=== PATIENT | female | born 1950 | race Caucasian/White ===

== ENCOUNTER → 2020-02-13 11:33 | Outpatient (CLI) | payer MEDICARE, SELFPAY ==
--- NOTE | ~2020-02-13 | MM_ITS ---
EXAMINATION: screening [facility] BI w julia HISTORY: Screening mammogram TECHNIQUE: Craniocaudal and mediolateral oblique 3-D tomosynthesis images were obtained and synthetic 2-D images were generated. CAD analysis was submitted and interpreted. COMPARISON: 09/30/2018, 09/06/2017, 05/29/2016 BREAST PARENCHYMAL COMPOSITION: There are scattered areas of fibroglandular density. FINDINGS: Stable focal asymmetries are present in the upper outer quadrant of the right breast. There is no evidence of suspicious mass, calcification, or architectural distortion to suggest malignancy in either breast. There has been no suspicious interval change. IMPRESSION: 1. No mammographic evidence of malignancy. 2. Recommend routine screening mammography in one year. BI-RADS Category 2: Benign finding(s). Reviewed, dictated and finalized at location A.
== END ==
PROVIDERS: PCP Internal Medicine; Visit Provider Obstetrics & Gynecology
DX: Z12.31 Encounter for screening mammogram for malignant neoplasm of breast (principal)
CPT/HCPCS: 77063; 77067

== ENCOUNTER → 2021-02-05 13:11 | Outpatient (CLI) | payer MEDICARE, SELFPAY ==
--- NOTE | ~2021-02-05 | DEXA_ITS ---
Bone Density Report Name: Joselyn Hughes Age: 70 Sex: Female Ethnicity: White Date of : 1950 Indication: osteopenia; hysterectomy; postmenopausal Referring Provider: Jovan Monae Study: Bone densitometry was performed. Exam Date: February 05, 2021 Accession number: [id number] Bone Density: Region BMD T-score Z-score Classification AP Spine (L1-L4) 0.942 -1.0 1.0 Normal Femoral Neck (Left) 0.578 -2.4 -0.7 Osteopenia Total Hip (Left) 0.768 -1.4 0.0 Osteopenia Femoral Neck (Right) 0.669 -1.6 0.1 Osteopenia Total Hip (Right) 0.735 -1.7 -0.3 Osteopenia Total Hip Mean 0.752 -1.6 -0.2 Osteopenia World Health Organization criteria for BMD impression classify patients as: Normal (T-score at or above -1.0), Osteopenia (T-score between -1.0 and -2.5), or Osteoporosis (T-score at or below -2.5). 10-year Fracture Risk(1): Major Osteoporotic Fracture 12% Hip Fracture 2.5% Reported Risk Factors: [place] (), Neck BMD=0.578, BMI=35.5 (1) FRAX(R) Version 3.08. Fracture probability calculated for an untreated patient. Fracture probability may be lower if the patient has received treatment. Previous Exams: Region Exam Age BMD T-score BMD Change BMD Change Date g/cm2 vs Baseline vs Previous AP Spine(L1-L4) 02/05/2021 70 0.942 -1.0 0.010 -0.013 03/14/2012 61 0.955 -0.8 0.023 0.043* 02/17/2010 59 0.912 -1.2 -0.020 -0.020 02/15/2008 57 0.932 -1.0 Total Hip(Left) 02/05/2021 70 0.768 -1.4 -0.135* -0.023 03/14/2012 61 0.791 -1.2 -0.113 -0.015 02/17/2010 59 0.806 -1.1 -0.097 -0.097 02/15/2008 57 0.903 -0.3 Total Hip(Right) 02/05/2021 70 0.735 -1.7 -0.109* 0.038 03/14/2012 61 0.697 -2.0 -0.147 -0.042* 02/17/2010 59 0.738 -1.7 -0.105 -0.105 02/15/2008 57 0.844 -0.8 *Denotes significance at 95% confidence level, LSC for AP Spine = 0.022 g/cm2, LSC for Total Hip = 0.027 g/cm2 Clinical Information Provided by Patient: Has the following medical conditions: Hysterectomy Patient maximum height was 62.0 Menopause Age: 54 Drinks caffeinated beverages Onset of menses at age 14 Number of children 1 Impression: The patient has low bone mass, based on the Left Femoral Neck T-score. The patient has an estimated ten-year risk of hip
== END ==
PROVIDERS: PCP Internal Medicine; Visit Provider Internal Medicine
DX: Z13.820 Encounter for screening for osteoporosis (principal); Z78.0 Asymptomatic menopausal state; M85.852 Other specified disorders of bone density and structure, left thigh; M85.851 Other specified disorders of bone density and structure, right thigh
CPT/HCPCS: 77080

== ENCOUNTER → 2021-03-28 12:19 | Outpatient (CLI) | payer MEDICARE, SELFPAY ==
--- NOTE | ~2021-03-28 | MM_ITS ---
EXAMINATION: MM screening g[facility] BI w julia HISTORY: Screening TECHNIQUE: Craniocaudal and mediolateral oblique 3-D tomosynthesis images were obtained and synthetic 2-D images were generated. CAD analysis was submitted and interpreted. COMPARISON: Comparison to multiple prior studies sequentially, with oldest reviewed study dated 03/19. BREAST PARENCHYMAL COMPOSITION: There are scattered areas of fibroglandular density. FINDINGS: There is no evidence of suspicious mass, calcification, or architectural distortion to sugg est malignancy in either breast. There has been no suspicious interval change. IMPRESSION: 1. No mammographic evidence of malignancy. 2. Recommend routine screening mammography in one year. BI-RADS Category 1: Negative Reviewed, dictated and finalized at location A. 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
== END ==
PROVIDERS: Visit Provider Obstetrics & Gynecology
DX: Z12.31 Encounter for screening mammogram for malignant neoplasm of breast (principal)
CPT/HCPCS: 77063; 77067

== ENCOUNTER 2021-11-12 11:04 | Outpatient (CLI) | payer MEDICARE, SELFPAY ==
--- NOTE | ~2021-11-12 | XR_ITS ---
XR hand RT min 3V DATE: 11/12/2021 11:41 INDICATION: Tenderness and swelling at first carpometacarpal joint TECHNIQUE: 3 views COMPARISON: None FINDINGS: There is osteopenia. There is joint space narrowing and mild spurring at the first carpometacarpal joint consistent with o steoarthritis. There is mild osteoarthritic change at the first through fourth metacarpophalangeal joints and multip le interphalangeal joints. No fracture, dislocation, periosteal reaction or bone destruction. IMPRESSION: Polyarticular osteoarthritis Osteopenia Reviewed, dictated and finalized at location A.
== END 2021-11-12 11:05 | disposition home or self-care (01) ==
LOC: CHSIMG 11:07
PROVIDERS: PCP Internal Medicine; Visit Provider Internal Medicine
DX: M79.644 Pain in right finger(s) (principal); M79.641 Pain in right hand
CPT/HCPCS: 73130

== ENCOUNTER → 2022-05-08 10:39 | Outpatient (CLI) | payer MEDICARE, SELFPAY ==
--- NOTE | ~2022-05-08 | MM_ITS ---
EXAMINATION: MM screening gillian BI w julia HISTORY: Screening mammogram TECHNIQUE: Craniocaudal and mediolateral oblique 3-D tomosynthesis images were obtained and synthetic 2-D images were generated. CAD analysis was submitted and interpreted. COMPARISON: 03/28/2021, 02/13/2020, 09/30/2018 bilateral screening mammogram examinations BREAST PARENCHYMAL COMPOSITION: There are scattered areas of fibroglandular density. FINDINGS: Stable mild fibroglandular asymmetry. There is no evidence of suspicious mass, calcificatio n, or architectural distortion to suggest malignancy in either breast. There has been no suspicious i nterval change. IMPRESSION: 1. No mammographic evidence of malignancy. 2. Recommend routine screening mammography in one year. BI-RADS Category 1: Negative Reviewed, dictated and finalized at location B. 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
== END ==
PROVIDERS: PCP Internal Medicine; Visit Provider Obstetrics & Gynecology
DX: Z12.31 Encounter for screening mammogram for malignant neoplasm of breast (principal)
CPT/HCPCS: 77063; 77067

== ENCOUNTER 2023-01-11 14:11 | Outpatient (CLI) | payer MEDICARE, SELFPAY ==
--- NOTE | ~2023-01-11 | XR_ITS ---
EXAMINATION: XR chest 2V 01/11/2023 14:34 INDICATION: Chest pain PROCEDURE: 2 view chest COMPARISON: 06/11/2015 FINDINGS: The lungs are clear. The cardiomediastinal silhouette is within normal limits. There are no pleural effusions. There is no pneumothorax suspected. There is dextroscoliosis. Moderate thorac ic spondylosis. IMPRESSION: 1: NO ACUTE CARDIOPULMONARY DISEASE. Reviewed, dictated and finalized at location B.
[2023-01-11 14:28] LABS: Basophils Absolute Auto 0.03 K/mm3 (0.00-0.10); Basophils Percent Auto 0.4 % (0.0-1.0); Eosinophils Absolute Auto 0.18 K/mm3 (0.02-0.50); Eosinophils Percent Auto 2.2 % (1.0-6.0); Hematocrit 40.9 % (35.0-42.0); Hemoglobin 13.6 g/dL (11.7-13.8); Immature Granulocyte Absolute 0.02 K/mm3 (0.00-0.00); Immature Granulocyte Percent A 0.2 % (0.0-0.0); Lymphocytes Absolute Auto 2.79 K/mm3 (1.10-4.50); Lymphocytes Percent Auto 34.8 % (18.0-42.0); Mean Corpuscular HGB Conc 33.3 g/dL (32.0-36.0); Mean Corpuscular Hemoglobin 32.3 pg (27.0-31.0); Mean Corpuscular Volume 97.1 fL (78.0-102.0); Mean Platelet Volume 10.2 fl (9.2-11.8); Monocytes Absolute Auto 0.54 K/mm3 (0.10-0.90); Monocytes Percent Auto 6.7 % (2.0-11.0); Neutrophils Absolute Auto 4.5 K/mm3 (1.7-7.2); Neutrophils Percent Auto 55.7 % (50.0-70.0); Platelet Count Result 221 K/mm3 (150-420); Red Blood Count 4.21 M/mm3 (4.20-5.40); Red Cell Distribution Width 11.6 % (11.6-14.4)
--- NOTE | 2023-01-11 14:38 | ECG_ITS ---
Measurements Intervals [place] Rate: 81 P: 56 [place]: 219 QRS: 44 QRSD: 84 T: 51 QT: 370 QTc: 432 Interpretive Statements SINUS RHYTHM WITH FIRST DEGREE AV BLOCK VENTRICULAR PREMATURE COMPLEX BORDERLINE ST ABNORMALITY- ANTERAOLAT/INF LEADS BORDERLINE ECG NO PREVIOUS ECG AVAILABLE FOR COMPARISON Electronically Signed On 01-11-2023 14:58:36 CDT by Ry Bernstein D.O.
[2023-01-11 14:41] LABS: D Dimer 0.45 mg/L (0.19-0.50)
[2023-01-11 14:45] LABS: Alanine Aminotransferase 20 U/L (14-59); Albumin Level 3.8 g/dL (3.4-5.0); Alkaline Phosphatase 80 U/L (46-116); Anion Gap 10 mmol/L (8-16); Aspartate Amino Transferase 13 U/L (15-37); Bilirubin,Total 0.5 mg/dL (0.00-1.00); Blood Urea Nitrogen 15 mg/dL (7-18); Calcium 9.8 mg/dL (8.5-10.1); Carbon Dioxide 25 mmol/L (21-32); Chloride 105 mmol/L (98-108); Creatine Kinase 69 U/L (26-192); Estimated Glomerular Filt Rate 60; Glucose 114 mg/dL (70-99); Osmolality Calculated 291 mOsm/kg (285-295); Potassium 3.8 mmol/L (3.5-5.1); Sodium 140 mmol/L (136-145); Total Protein 7.5 g/dL (6.4-8.2)
[2023-01-11 16:42] LABS: Troponin I < 0.012 ng/mL (0.000-0.034)
[2023-01-12 10:43] LABS: Creatine Kinase MB < 0.50 ng/mL (0.00-5.00)
== END 2023-01-11 14:12 | disposition home or self-care (01) ==
LOC: CHSLAB 14:14
PROVIDERS: PCP Internal Medicine; Visit Provider Internal Medicine
DX: R07.9 Chest pain, unspecified (principal); I44.30 Unspecified atrioventricular block; R94.31 Abnormal electrocardiogram [ECG] [EKG]
CPT/HCPCS: 36415; 71046; 80053; 82550; 82553; 84484; 85025; 85380; 93005

== ENCOUNTER 2023-01-15 14:10 | Outpatient (CLI) | payer MEDICARE, SELFPAY ==
--- NOTE | ~2023-01-15 | XR_ITS ---
EXAMINATION: XR shoulder RT min 2V INDICATION: Right shoulder pain TECHNIQUE: Four views of the right shoulder are submitted. COMPARISON: None FINDINGS: Normal alignment. No fracture. There is moderate to severe osteoarthritis of the glenohumer al joint and moderate osteoarthritis of the acromioclavicular joint. Calcified loose bodies are noted . Soft tissues are unremarkable. IMPRESSION: 1. 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 Reviewed, dictated and finalized at location F.
== END 2023-01-15 14:11 | disposition home or self-care (01) ==
LOC: CHSIMG 14:11
PROVIDERS: PCP Internal Medicine; Visit Provider Nurse Practitioner Family
DX: M25.511 Pain in right shoulder (principal); M19.011 Primary osteoarthritis, right shoulder
CPT/HCPCS: 73030

== ENCOUNTER 2023-06-09 12:30 | Outpatient (RCR) | payer MEDICARE, SELFPAY ==
--- NOTE | 2023-05-14 15:27 | OTOPEVAL1 ---
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 Reports constant pain. Reported Pain Level Pain Score 3: Self Report Assessment OT Clinical Summary Patient referred to OT with right thumb CMC OA. Today a hand based thumb spica splint was fabricated to support and immobilize the CMC and MCP joints of the thumb as well as position the thumb in a position of function. She heavily flexes the MCP joint and hyper extends the IP joint during pinch. With the splint donned she is unable to do so, relieving the CMC joint. Educated on splint wearing schedule as well as ROM exercises. Continued follow up indicated for HEP progression, modalities, manual therapy, and therapeutic exercise to reduce hand/thumb pain and improve functional use. Plan of Care Interventions Therapeutic Exercise,Manual Therapy,Therapeutic Activities,Hot Pack/Cold Pack,Check Out for Orthotic/Pr,Ultrasound,Paraffin OT Services Indicated Yes Treatment Frequency and 1x/week for 4 visits Duration These treatments will address the objective and functional deficits as defined above. The patient will be advanced safely and appropriately in order for the patient to progress towards his/her prior level of function. Additional exercises will be introduced and as well as a comprehensive home exercise program upon discharge, if needed, ?to ensure carryover of functional gains achieved in the clinic. This treatment plan has been reviewed and agreement upon by the patient.
--- NOTE | 2023-05-14 15:31 | OTOPEVAL1 ---
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 Reports constant pain. Difficulties with opening jars, household cleaning , and holding her iPad. Reported Pain Level Pain Score 3: Self Report Assessment OT Clinical Summary Patient referred to OT with right thumb CMC OA. Today a hand based thumb spica splint was fabricated to support and immobilize the CMC and MCP joints of the thumb as well as position the thumb in a position of function. She heavily flexes the MCP joint and hyper extends the IP joint during pinch. With the splint donned she is unable to do so, relieving the CMC joint. Educated on splint wearing schedule as well as ROM exercises. Continued follow up indicated for HEP progression, modalities, manual therapy, and therapeutic exercise to reduce hand/thumb pain and improve functional use. Plan of Care Interventions Therapeutic Exercise,Manual Therapy,Therapeutic Activities,Hot Pack/Cold Pack,Check Out for Orthotic/Pr,Ultrasound,Paraffin OT Services Indicated Yes Treatment Frequency and 1x/week for 4 visits Duration These treatments will address the objective and functional deficits as defined above. The patient will be advanced safely and appropriately in order for the patient to progress towards his/her prior level of function. Additional exercises will be introduced and as well as a comprehensive home exercise program upon discharge, if needed, ?to ensure carryover of functional gains achieved in the clinic. This treatment plan has been reviewed and agreement upon by the patient.
--- NOTE | 2023-06-09 13:02 | OTOPDC ---
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 Reports no longer having constant pain and is happy with her progress. She has been complaint with wearing her thumb spica orthotic and reports it provides a lot of relief. She was able to shovel the snow last week with the splint on and had no pain. Reports no longer having difficulties or pain with holding her iPad, with light household tasks, and is using an adapted pen when writing. She reports the brace is helpful when she's at the gym. Reported Pain Level Pain Score 0: Self Report Additional Pain Score Comments Patient improved to no pain at rest. She was consistently at least 3/10 prior to coming to therapy. Assessment OT Clinical Summary Patient referred to OT with right thumb CMC OA. She has made excellent progress with therapy with reduced pain and improved functional strength of the thumb. Adaptive ADL techniques and equipment have been reviewed. She has progressed to being able to complete light binding cutter/pinch and wrist strengthening without pain. She is ready for discharge. D/C OT. Plan of Care OT Services Indicated No
== END 2023-06-09 13:37 | disposition home health service (06) ==
LOC: ANHOT 12:30
PROVIDERS: PCP Internal Medicine; Visit Provider Plastic Surgery
DX: M18.9 Osteoarthritis of first carpometacarpal joint, unspecified (principal)
CPT/HCPCS: 97018; 97110; 97140; 97165; L3921

== ENCOUNTER 2023-09-02 07:15 | Outpatient (CLI) | payer MEDICARE, SELFPAY ==
[2023-09-02 07:33] LABS: Basophils Absolute Auto 0.04 K/mm3 (0.00-0.10); Basophils Percent Auto 0.7 % (0.0-1.0); Eosinophils Absolute Auto 0.23 K/mm3 (0.02-0.50); Eosinophils Percent Auto 3.9 % (1.0-6.0); Hematocrit 39.8 % (35.0-42.0); Hemoglobin 13.4 g/dL (11.7-13.8); Immature Granulocyte Absolute 0.01 K/mm3 (0.00-0.00); Immature Granulocyte Percent A 0.2 % (0.0-0.0); Lymphocytes Absolute Auto 2.46 K/mm3 (1.10-4.50); Lymphocytes Percent Auto 41.4 % (18.0-42.0); Mean Corpuscular HGB Conc 33.7 g/dL (32-36); Mean Corpuscular Hemoglobin 32.4 pg (27.0-31.0); Mean Corpuscular Volume 96.1 fL (78.0-102.0); Mean Platelet Volume 9.9 fl (9.2-11.8); Monocytes Absolute Auto 0.47 K/mm3 (0.10-0.90); Monocytes Percent Auto 7.9 % (2.0-11.0); Neutrophils Absolute Auto 2.73 K/mm3 (1.70-7.20); Neutrophils Percent Auto 45.9 % (50.0-70.0); Platelet Count Result 225 K/mm3 (150-420); Red Blood Count 4.14 M/mm3 (4.20-5.40); White Blood Count 5.9 K/mm3 (4.8-10.8)
[2023-09-02 07:36] LABS: Appearance Urine Clear (Clear); Bilirubin Urine Negative (Negative); Blood Urine Trace-intact (Negative); Color Urine Light Yellow (Yellow); Glucose Urine UA Negative (Negative); Ketones Urine Negative (Negative); Leukocyte Esterase Ur 1+ LEU/UL (Negative); Nitrate Urine Negative (Negative); Protein Urine Negative (Negative); Urobilinogen Urine 0.2 mg/dL (0.2-1.0)
[2023-09-02 07:49] LABS: Add Urine Microscopic? YES; RBC Urine 0-2 /hpf (0-2); WBC Urine 21-30 /hpf (0-3)
[2023-09-02 07:50] LABS: Bacteria Urine 2+ /hpf; Squamous Epithelial Cell Urine Occasional /hpf (Few)
[2023-09-02 08:23] LABS: Alanine Aminotransferase 23 U/L (14-59); Albumin Level 3.9 g/dL (3.4-5.0); Alkaline Phosphatase 68 U/L (46-116); Anion Gap 10 mmol/L (4-12); Aspartate Amino Transferase 29 U/L (15-37); Bilirubin,Total 0.9 mg/dL (0.00-1.00); Blood Urea Nitrogen 22 mg/dL (7-18); Calcium 9.5 mg/dL (8.5-10.1); Carbon Dioxide 26 mmol/L (21-32); Chloride 103 mmol/L (98-108); Cholesterol 172 mg/dL (0-200); Estimated Glomerular Filt Rate 57; Glucose 116 mg/dL (70-99); HDL Direct 50 mg/dL (40-60); LDL Cholesterol Calculated 100 mg/dL (<130); Osmolality Calculated 292 mOsm/kg (285-295); Potassium 4.1 mmol/L (3.5-5.1); Sodium 139 mmol/L (136-145); Thyroid Stimulating Hormone 2.99 uIU/mL (0.36-3.74); Total Protein 6.9 g/dL (6.4-8.2); Triglycerides 111 mg/dL (0-150)
[2023-09-02 10:40] LABS: Hemoglobin A1C 5.4 % (<5.7)
[2023-09-04 07:18] LABS: Vitamin D 25 Hydroxy 56 ng/mL (30-100)
== END 2023-09-02 07:16 | disposition home or self-care (01) ==
LOC: CHSLAB 07:17
PROVIDERS: PCP Internal Medicine; Visit Provider Internal Medicine
DX: E78.5 Hyperlipidemia, unspecified (principal); R82.90 Unspecified abnormal findings in urine; E55.9 Vitamin D deficiency, unspecified; I10 Essential (primary) hypertension; R73.02 Impaired glucose tolerance (oral)
CPT/HCPCS: 36415; 80053; 80061; 81001; 82306; 83036; 84443; 85025; 87077; 87086; 87088; 87186

== ENCOUNTER 2023-09-07 15:03 | Outpatient (CLI) | payer MEDICARE, SELFPAY ==
--- NOTE | ~2023-09-07 | MM_ITS ---
EXAMINATION: MM screening g[facility] BI w julia HISTORY: Screening TECHNIQUE: Craniocaudal and mediolateral oblique 3-D tomosynthesis images were obtained and synthetic 2-D images were generated. CAD analysis was submitted and interpreted. COMPARISON: Comparison to multiple prior studies sequentially, with oldest reviewed study dated 05/29. BREAST PARENCHYMAL COMPOSITION: Not dense: There are scattered areas of fibroglandular density. FINDINGS: There is no evidence of suspicious mass, calcification, or architectural distortion to sugg est malignancy in either breast. There has been no suspicious interval change. IMPRESSION: 1. No mammographic evidence of malignancy. 2. Recommend routine screening mammography in one year. BI-RADS Category 1: Negative Reviewed, dictated and finalized at location A.
== END 2023-09-07 15:04 ==
LOC: MICIMG 15:04
PROVIDERS: PCP Obstetrics & Gynecology; Visit Provider Obstetrics & Gynecology
DX: Z12.31 Encounter for screening mammogram for malignant neoplasm of breast (principal)
CPT/HCPCS: 77063; 77067

== ENCOUNTER 2023-09-08 10:11 | Outpatient (CLI) | payer MEDICARE, SELFPAY ==
[2023-09-08 10:32] LABS: Appearance Urine Sl Cloudy (Clear); Bilirubin Urine Negative (Negative); Blood Urine Trace-intact (Negative); Color Urine Light Yellow (Yellow); Glucose Urine UA Negative (Negative); Ketones Urine Negative (Negative); Leukocyte Esterase Ur 2+ (Negative); Nitrate Urine Positive (Negative); Protein Urine Negative (Negative); Urobilinogen Urine 0.2 mg/dL (0.2-1.0)
[2023-09-08 11:01] LABS: Add Urine Microscopic? YES; Bacteria Urine 4+ /hpf; RBC Urine 0-2 /hpf (0-2); Squamous Epithelial Cell Urine Few /hpf (Few); WBC Urine >75 /hpf (0-3)
== END 2023-09-08 10:12 | disposition home or self-care (01) ==
LOC: CHSLAB 10:15
PROVIDERS: PCP Internal Medicine; Visit Provider Internal Medicine
DX: N39.0 Urinary tract infection, site not specified (principal)
CPT/HCPCS: 81001; 87077; 87086; 87088; 87186

== ENCOUNTER 2023-11-30 10:25 | Outpatient (CLI) | payer MEDICARE, SELFPAY ==
--- NOTE | 2023-11-30 10:29 | EST_ITS ---
Patient Info Name: Joselyn Hughes Age: 73 years : 1950 Gender: Female Ht: 62 in Wt: 185 lbs BSA: 1.95 m2 Technical Quality: Good Exam Date: 11/30/2023 10:52 AM Exam Location: Echo Lab Patient Status: Outpatient Admit Date: 11/30/2023 Staff Ordering Physician: Ry Fisher DO Paint Process Engineer: Sofia Lou RDCS Attending Provider: RY FISHER Referring Physician: Amandeep NICHOLSON; Exercise Technologist: Keily Stallings CT Exercise Physician: Ry Fisher DO Exam Type: CA stress echo Study Info Indications Z01.810 - Encounter for preprocedural cardiovascular examination Treadmill exercise stress echocardiogram is performed. Summary 1. 1. Negative Wilner exercise stress test for ischemic ST changes by ECG criteria. 2. 2. Reduced functional capacity, achieving 4.7 METs of workload. 3. 3. Appropriate HR response to exercise. 4. 4. Appropriate HR recovery at 1 minute post exercise. 5. 5. Negative stress echocardiogram for ischemia by wall motion analysis. 6. 6. Patient informed of the above results. Stress Echo Findings Left Ventricle Appropriate increase in LV endocardial thickening with systole. Appropriate augmentation of contractility with systole. No wall motion abnormality. Left Ventricle Normal LV systolic function, no wall motion abnormality. Protocol: Wilner Stress ECG Details Stage: REST Duration (min): 1 min : 31 sec Speed (mph): 0.0 Grade (%): 0 HR (bpm): 93 SBP (mmHg): 143 DBP (mmHg): 68 METS: --- Stage: REST Duration (min): 14 min : 53 sec Speed (mph): 0.0 Grade (%): 0 HR (bpm): 98 SBP (mmHg): 143 DBP (mmHg): 68 METS: --- Stage: STAGE 1 Duration (min): 1 min : 0 sec Speed (mph): 1.7 Grade (%): 10 HR (bpm): 113 SBP (mmHg): 143 DBP (mmHg): 68 METS: --- Stage: STAGE 1 Duration (min): 2 min : 0 sec Speed (mph): 1.7 Grade (%): 10 HR (bpm): 134 SBP (mmHg): 143 DBP (mmHg): 68 METS: --- Stage: STAGE 1 Duration (min): 3 min : 0 sec Speed (mph): 1.7 Grade (%): 10 HR (bpm): 137 SBP (mmHg): 190 DBP (mmHg): 58 METS: --- Stage: STAGE 2 Duration (min): 0 min : 3 sec Speed (mph): 0.0 Grade (%): 0 HR (bpm): 141 SBP (mmHg): 190 DBP (mmHg): 58 METS: --- Stage: RECOVERY Duration (min): 0 min : 56 sec Speed (mph): 0.0 Grade (%): 0 HR (bpm): 120 SBP (mmHg): 190 DBP (mmHg): 58 METS: --- Stage: RECOVERY Duration (min): 1 min : 56 sec Speed (mph): 0.0 Grade (%): 0 HR (bpm): 100 SBP (mmHg): 190 DBP (mmHg): 58 METS: --- Stage: RECOVERY Duration (min): 2 min : 56 sec Speed (mph): 0.0 Grade (%): 0 HR (bpm): 95 SBP (mmHg): 183 DBP (mmHg): 61 METS: --- Stage: RECOVERY Duration (min): 3 min : 4 sec Speed (mph): 0.0 Grade (%): 0 HR (bpm): 95 SBP (mmHg): 183 DBP (mmHg): 61 METS: --- Rest HR: 98 bpm Peak HR: 137 bpm Rest Sys BP: 143 mmHg Peak Sys BP: 190 mmHg Max Pred HR: 149 bpm % Max Pred HR: 92 % Target HR: 127 bpm Max RPP: 26,030 bpm*mmHg León Score: -2 Termination Reason:
== END 2023-11-30 10:26 | disposition home or self-care (01) ==
PROVIDERS: PCP Internal Medicine; Visit Provider Internal Medicine Cardiovascular Disease
DX: Z01.810 Encounter for preprocedural cardiovascular examination (principal); I10 Essential (primary) hypertension
CPT/HCPCS: 93351

== ENCOUNTER 2023-12-30 01:47 | Day surgery (SDC) | payer MEDICARE, SELFPAY ==
[2023-12-13 09:25] VITALS: BMI 33.0
[2023-12-30 09:19] VITALS: BP 153/78; PULSE 82; RESP 20; TEMP 36.1; O2SAT 100
[2023-12-30] MEDS: LACTATED RINGERS 1,000 ML 150 ML IV CONT ×2 (09:26→11:00)
--- NOTE | 2023-12-30 10:07 | WPDANESEPPF ---
Anes - Initial Pre Proc Eval Procedure: Operation Date: 12/30/23 10:30 Proposed Procedures p Colonoscopy - King Ellis DO Date/Time: 12/30/23 10:07 Surgeon: King Ellis DO Pre Op Diagnosis: Positive Cologuard Patient Data Age: 73 Gender: F Height: 1.57 m Weight: 87.2 kg Last Vital Signs Temp 36.1 C L 12/30/23 09:19 Pulse 82 12/30/23 09:19 Resp 20 12/30/23 09:19 BP 153/78 H 12/30/23 09:19 Pulse Ox 100 12/30/23 09:19 O2 Del Method Room Air 12/30/23 09:19 Allergies Allergy/AdvReac Type Severity Reaction Status Date / Time Aminoglycosides Allergy Severe ALL MYCINS Verified 12/30/23 09:17 azithromycin Allergy Severe DIFF Verified 12/30/23 09:17 BREATHING AFTER 2 DOSES--SEVERE clindamycin Allergy Severe ALL MYCINS Verified 12/30/23 09:17 erythromycin base Allergy Severe ALL MYCINS Verified 12/30/23 09:17 gentamicin Allergy Severe ALL MYCINS Verified 12/30/23 09:17 iodine Allergy Severe RASH Verified 12/30/23 09:17 neomycin Allergy Severe ALL MYCINS Verified 12/30/23 09:17 povidone Allergy Severe RASH Verified 12/30/23 09:17 vancomycin Allergy Severe ALL MYCINS Verified 12/30/23 09:17 Home Medications Medication Instructions Recorded Confirmed Type irbesartan 300 mg tablet 300 mg PO DAILY #90 tabs 03/23/19 12/30/23 Rx lovastatin 20 mg tablet 20 mg PO DAILY #90 tabs 03/23/19 12/30/23 Rx pantoprazole 40 mg tablet,delayed 40 mg PO QAM #90 tabs 03/23/19 12/30/23 Rx release Patient hx anesthesia problems: other (slow to awaken) Family hx anesthesia problems: none Results Review: All pre-operative results and documents have been reviewed as part of the pre-operative evaluation. [facility] Past Medical History Medical History Acid reflux High cholesterol History of first degree atrioventricular block Hypertension Osteopenia Screening mammogram, encounter for Surgical History Surgical History History of breast biopsy (~11/17/00) left breast--benign History of foot surgery 2011 Achilles tendon surgery, bone spur 05/03/17 left foot--Achilles tendon surgery History of hysterectomy, supracervical (~2005) supracx hyst w/ BSO History of tonsillectomy (~1966) Family History Family History Father Cerebrovascular accident Heart disease Diabetes mellitus Mother Heart disease Sibling Coronary artery disease Type 2 diabetes mellitus Grandparent COPD (chronic obstructive pulmonary disease) Grandparent Endometrial cancer Social History Social History Smoking status: Never smoker Alcohol intake: never Substance use: never Substance use type: does not use Do You Feel Safe in your Home?: Yes Lack of Transportation: No Lack of Food: Never True Current Housing: I Have Housing Concerned About Future Housing: No Difficulty Paying Gas/Electric Bills: No Difficulty Paying for Meds: No Currently Unemployed: No Education: Master's Degree or Higher Difficulty w/ Childcare or Family Care: No Living arrangements: with family Additional living arrangements comments: Occupation/Education: retired Gender identity (if verbalized by the patient): Female Sexual Orientation (if Verbalized by the Patient): Straight or Heterosexual Spiritual care concerns: No Anes - Eval Final PreProcedure Day of Procedure 12/30/23 10:07 Patient weight: obese Heart: regular rate and rhythm Lungs: clear to auscultation Airway: Mallampati scale class II Neurological: alert and oriented Last oral intake: >/= 8 hours ASA classification: III Emergent: no Anesthetic plan: proceed Anesthesia type and monitoring: general GIVS and standard monitoring Results Review: All pre-operative res
--- NOTE | 2023-12-30 10:21 | PM.IMHP ---
H&P: HPI History of Present Illness Date/Time: 12/30/23 10:21 Chief Complaint: Positive Cologuard test Narrative: this is a 73-year-old woman who presents for colonoscopy. She recently had a Cologuard test that was positive. Her last colonoscopy was about 20 years ago. She denies any hematochezia or melena. She denies any family history of colon cancer. Review of Systems Review of Systems: All systems reviewed & are unremarkable except as noted in HPI and below Constitutional: Constitutional: Denies chills, Denies fever(s), Denies headache(s) and Denies weight loss Eyes: Eyes: Denies change in vision ENT: Denies dizziness, Denies headache(s), Denies neck mass and Denies throat swelling Cardiovascular: Cardiovascular: Denies chest pain, Denies lightheadedness and Denies dyspnea Respiratory: Respiratory: Denies cough, Denies dyspnea and Denies wheezing Gastrointestinal: Gastrointestinal: Denies abdominal pain, Denies change in bowel habits, Denies nausea and Denies vomiting Genitourinary: Genitourinary: Denies hematuria and Denies dysuria Musculoskeletal: Musculoskeletal: Reports as per HPI Integumentary/Breasts: Skin/Breast: Reports as per HPI Neurologic: Denies dizziness and Denies headache(s) Allergic/Immunologic: Allergic/Immunologic: Denies throat swelling and Denies wheezing PMFSH Past Medical History Medical History Acid reflux High cholesterol History of first degree atrioventricular block Hypertension Osteopenia Screening mammogram, encounter for Surgical History Surgical History History of breast biopsy (~11/17/00) left breast--benign History of foot surgery 2012 Achilles tendon surgery, bone spur 05/03/17 left foot--Achilles tendon surgery History of hysterectomy, supracervical (~2005) supracx hyst w/ BSO History of tonsillectomy (~1966) Family History Family History Father Cerebrovascular accident Heart disease Diabetes mellitus Mother Heart disease Sibling Coronary artery disease Type 2 diabetes mellitus Grandparent COPD (chronic obstructive pulmonary disease) Grandparent Endometrial cancer Social History Social History Smoking status: Never smoker Alcohol intake: never Substance use: never Substance use type: does not use Do You Feel Safe in your Home?: Yes Lack of Transportation: No Lack of Food: Never True Current Housing: I Have Housing Concerned About Future Housing: No Difficulty Paying Gas/Electric Bills: No Difficulty Paying for Meds: No Currently Unemployed: No Education: Master's Degree or Higher Difficulty w/ Childcare or Family Care: No Living arrangements: with family Additional living arrangements comments: Occupation/Education: retired Gender identity (if verbalized by the patient): Female Sexual Orientation (if Verbalized by the Patient): Straight or Heterosexual Spiritual care concerns: No Meds Home Medications and Allergies Home Medications Medication Instructions Recorded Confirmed Type irbesartan 300 mg tablet 300 mg PO DAILY #90 tabs 03/23/19 12/30/23 Rx lovastatin 20 mg tablet 20 mg PO DAILY #90 tabs 03/23/19 12/30/23 Rx pantoprazole 40 mg tablet,delayed 40 mg PO QAM #90 tabs 03/23/19 12/30/23 Rx release Allergies Allergy/AdvReac Type Severity Reaction Status Date / Time Aminoglycosides Allergy Severe ALL MYCINS Verified 12/30/23 09:17 azithromycin Allergy Severe DIFF Verified 12/30/23 09:17 BREATHING AFTER 2 DOSES--SEVERE clindamycin Allergy Severe ALL MYCINS Verified 12/30/23 09:17 erythromycin base Allergy Severe ALL MYCINS Verified 12/30/23 09:17 gentamicin Allergy Severe ALL MYCINS Verified 12/30/23 09:17 iodine Dennis
[2023-12-30 11:06] VITALS: BP 127/64; PULSE 90; RESP 22; O2SAT 100
[2023-12-30 11:16] VITALS: BP 135/69; PULSE 73; RESP 17; O2SAT 100
[2023-12-30 11:26] VITALS: BP 148/82; PULSE 60; RESP 23; O2SAT 98
== END 2023-12-30 11:37 | disposition home or self-care (01) ==
PROVIDERS: PCP Internal Medicine; Visit Provider Surgery
PROC: 0DJD8ZZ Inspection of Lower Intestinal Tract, Via Natural or Artificial Opening Endoscopic (ICD-10-PCS; CPT 45378; principal; 2023-12-30 10:30)
DX: R19.5 Other fecal abnormalities (principal); D12.2 Benign neoplasm of ascending colon; K21.9 Gastro-esophageal reflux disease without esophagitis; E78.00 Pure hypercholesterolemia, unspecified; I10 Essential (primary) hypertension; M85.88 Other specified disorders of bone density and structure, other site; E66.9 Obesity, unspecified; Z68.35 Body mass index [BMI] 35.0-35.9, adult; Z98.890 Other specified postprocedural states; Z86.79 Personal history of other diseases of the circulatory system; Z80.8 Family history of malignant neoplasm of other organs or systems; Z82.49 Family history of ischemic heart disease and other diseases of the circulatory system
CPT/HCPCS: 45385; 88305; 93351; J2704; J7120

== ENCOUNTER 2024-04-06 12:07 | Outpatient (CLI) | payer MEDICARE, SELFPAY ==
[2024-04-06 12:19] LABS: Add Urine Microscopic? YES; Appearance Urine Clear (Clear); Bilirubin Urine Negative (Negative); Blood Urine Negative (Negative); Color Urine Light Yellow (Yellow); Glucose Urine UA Negative (Negative); Ketones Urine Negative (Negative); Leukocyte Esterase Ur 1+ (Negative); Nitrate Urine Negative (Negative); Protein Urine Negative (Negative); Urobilinogen Urine 0.2 mg/dL (0.2-1.0); pH Urine 5.5 (5.0-8.0)
[2024-04-06 12:26] LABS: Bacteria Urine 1+ /hpf; RBC Urine None seen /hpf (0-2); Squamous Epithelial Cell Urine Few /hpf (Few)
[2024-04-06 12:55] LABS: Alanine Aminotransferase 25 U/L (14-59); Albumin Level 3.7 g/dL (3.4-5.0); Alkaline Phosphatase 85 U/L (46-116); Anion Gap 11 mmol/L (4-12); Aspartate Amino Transferase 17 U/L (15-37); Bilirubin,Total 0.7 mg/dL (0.00-1.00); Blood Urea Nitrogen 16 mg/dL (7-18); Calcium 9.4 mg/dL (8.5-10.1); Carbon Dioxide 28 mmol/L (21-32); Chloride 101 mmol/L (98-108); Estimated Glomerular Filt Rate > 60; Glucose 118 mg/dL (70-99); Osmolality Calculated 292 mOsm/kg (285-295); Potassium 4.1 mmol/L (3.5-5.1); Sodium 140 mmol/L (136-145); Total Protein 6.9 g/dL (6.4-8.2)
[2024-04-06 16:12] LABS: Cholesterol 181 mg/dL (0-200); HDL Direct 47 mg/dL (40-60); LDL Cholesterol Calculated 104 mg/dL (<130); Triglycerides 152 mg/dL (0-150)
== END 2024-04-06 12:08 | disposition home or self-care (01) ==
LOC: CHSLAB 12:08
PROVIDERS: PCP Internal Medicine; Visit Provider Internal Medicine
DX: E78.5 Hyperlipidemia, unspecified (principal); N39.0 Urinary tract infection, site not specified; R73.01 Impaired fasting glucose
CPT/HCPCS: 36415; 80053; 80061; 81001; 83036; 87086; 87186

== ENCOUNTER 2024-09-08 10:14 | Outpatient (CLI) | payer MEDICARE, SELFPAY ==
--- NOTE | ~2024-09-08 | MM_ITS ---
EXAMINATION: MM screening gillian BI w julia HISTORY: Screening TECHNIQUE: Craniocaudal and mediolateral oblique 3-D tomosynthesis images were obtained and synthetic 2-D images were generated. CAD analysis was submitted and interpreted. COMPARISON: Comparison to multiple prior studies sequentially, with oldest reviewed study dated 09/06. BREAST PARENCHYMAL COMPOSITION: There are scattered areas of fibroglandular density. FINDINGS: There is no evidence of suspicious mass, calcification, or architectural distortion to sugg est malignancy in either breast. There has been no suspicious interval change. IMPRESSION: 1. No mammographic evidence of malignancy. 2. Recommend routine screening mammography in one year. BI-RADS Category 1: Negative Reviewed, dictated and finalized at location B.
== END 2024-09-08 10:15 | disposition home or self-care (01) ==
PROVIDERS: PCP Internal Medicine; Visit Provider Obstetrics & Gynecology
DX: Z12.31 Encounter for screening mammogram for malignant neoplasm of breast (principal)
CPT/HCPCS: 77063; 77067

== ENCOUNTER 2024-10-27 07:27 | Outpatient (CLI) | payer MEDICARE, SELFPAY ==
--- OUTSIDE RECORDS SUMMARY | 2024-10-27 07:30 | XMS_ITS | Continuity of Care Document ---
Author Organization [facility] Address [address] [place] [address] [address] [place] [address] Phone Care Team Providers Care Heel Sorter Name Role Phone Roxi Bocanegra Unavailable Unavailable Advance Directives Directive Yes / No Effective Date File Name No Information Encounters Encounter Description Practice Location Reason(s) For Visit Diagnoses Date Provider Providers Copied on Encounter [facility], [address], [place], [place], [id number], [place] tel:[phone] [facility] No Information Dec-2 3-200 2 Sahra Diane. [address] , [address], [place], [address], [place]. tel:[phone] Family History Family Member Type Diagnosis Age At Onset No Information Payers Payer name Insurance type Covered democrat ID Authoriza tion(s) No Information Social History Type Description Quantity Date Captured Comments Sex Female Smoking Status No Information Chief Complaint And Reason For Visit No Information Reason For Referral Reason For Referral No Information History Of Present Illness Encounter Date Complaint History Of Prese nt Illness No Information Functional Status Date Functional Assessmen t No Information Instructions Date Instruction Additional Infor mation No Information Assessments Type Assessment Date No Information Patient Care Teams Name Effective Dates (start - stop) Status Members No Information
[2024-10-27 07:40] LABS: Hematocrit 41.8 % (35.0-42.0); Hemoglobin 13.9 g/dL (11.7-13.8); Immature Granulocyte Percent A 0.2 % (0.0-0.0); Lymphocytes Absolute Auto 2.51 K/mm3 (1.10-4.50); Mean Corpuscular HGB Conc 33.3 g/dL (32-36); Mean Corpuscular Hemoglobin 32.0 pg (27.0-31.0); Mean Corpuscular Volume 96.1 fL (78.0-102.0); Nucleated Red Blood Cells Absolute Auto 0.00 K/mm3 (0.00-0.00); Nucleated Red Blood Cells Perc 0.0 % (0-0.0); Platelet Count Result 218 K/mm3 (150-420); Red Blood Count 4.35 M/mm3 (4.20-5.40); White Blood Count 5.8 K/mm3 (4.8-10.8)
[2024-10-27 07:45] LABS: Add Urine Microscopic? YES; Appearance Urine Clear (Clear); Glucose Urine UA Negative (Negative); Leukocyte Esterase Ur 2+ (Negative); Nitrate Urine Negative (Negative); Specific Grav Ur 1.010 (1.010-1.020)
[2024-10-27 07:50] LABS: Hemoglobin A1C 5.7 % (<5.7)
[2024-10-27 08:12] LABS: Alanine Aminotransferase 19 U/L (6-35); Albumin Level 4.3 g/dL (3.5-5.1); Alkaline Phosphatase 78 U/L (38-126); Anion Gap 5 mmol/L (4-12); Aspartate Amino Transferase 25 U/L (14-36); Bilirubin,Total 0.8 mg/dL (0.2-1.3); Blood Urea Nitrogen 18 mg/dL (7-17); Calcium 9.7 mg/dL (8.4-10.2); Carbon Dioxide 25 mmol/L (22-30); Chloride 108 mmol/L (98-107); Cholesterol 191 mg/dL (0-200); Estimated Glomerular Filt Rate > 60; Glucose 102 mg/dL (65-110); HDL Direct 41 mg/dL; Osmolality Calculated 287 mOsm/kg (285-295); Potassium 4.4 mmol/L (3.4-5.0); Sodium 138 mmol/L (137-145); Total Protein 7.1 g/dL (6.3-8.2); Triglycerides 167 mg/dL (<150)
[2024-10-27 08:42] LABS: Thyroid Stimulating Hormone 2.990 uIU/mL (0.465-4.680)
== END 2024-10-27 07:28 | disposition home or self-care (01) ==
LOC: CHSLAB 07:28
PROVIDERS: PCP Internal Medicine; Visit Provider Internal Medicine
DX: I10 Essential (primary) hypertension (principal); R73.03 Prediabetes
CPT/HCPCS: 36415; 80053; 80061; 81001; 83036; 84443; 85025